=== PATIENT | female | born 1950 | race Caucasian/White ===

== ENCOUNTER 2019-06-25 19:33 | Observation (INO) ==
[2019-06-25 20:04] LABS: Hematocrit 39.6 % (35.3-44.9); Hemoglobin 13.5 g/dL (11.5-15.4); Mean Corpuscular HGB Conc 34.1 g/dL (31.6-35.5); Mean Corpuscular Hemoglobin 30.4 pg (28.0-33.3); Mean Corpuscular Volume 89.2 fL (83.0-100.0); Mean Platelet Volume 9.5 fL (9.4-12.4); Platelet Count 146 K/mcL (140-400); Red Blood Count 4.44 M/mcL (3.82-4.97); Red Cell Distribution Width 13.3 % (11.5-14.5); White Blood Count 4.1 K/mcL (4.3-11.1)
[2019-06-25 20:11] LABS: Prothrombin Time 11.5 Seconds (9.4-12.1)
[2019-06-25 20:13] LABS: Activated Partial Thrombo Time 34.5 Seconds (26.0-36.0)
[2019-06-25 20:21] LABS: BUN/Creatinine Ratio 11 (6-26); Blood Urea Nitrogen 9 mg/dL (8-23); Calcium 8.8 mg/dL (8.6-10.3); Carbon Dioxide 24 mEq/L (23-29); Chloride 105 mEq/L (98-107); Glucose 91 mg/dL (70-105); Osmolality,Calculated 282 (280-300); Potassium 3.8 mEq/L (3.5-5.1); Sodium 137 mEq/L (136-145); eGFR For African Americans > 60 (> 60); eGFR For Non-African Americans > 60 (> 60)
[2019-06-25 20:23] LABS: Troponin I < 0.03 ng/mL (< 0.04)
[2019-06-25] MEDS ORDERED: 0.9 % Sodium Chloride 1,000 ML IVC ONE (20:35)
[2019-06-25] MEDS ORDERED: Ketorolac 15 MG/ML VIAL IM ONE (20:35)
[2019-06-25] MEDS ORDERED: Aspirin 325 MG TABLET PO ONE (20:43)
[2019-06-25] MEDS ORDERED: Naloxone 0.4 MG/ML INJ IVP PRN (21:58)
[2019-06-25] MEDS ORDERED: Methocarbamol 750 MG TABLET PO PRN (22:12)
[2019-06-25] MEDS ORDERED: Gadolinium Contrast Agent (WT Based) IV PRN (22:33)
[2019-06-25] MEDS: 0.9 % Sodium Chloride 1,000 ML IVC SCH (23:08)
[2019-06-25] MEDS: Fluticasone Propionate Nasal 50 MCG/SPRAY BOTTLE NS PRN (23:24)
[2019-06-26 02:38] LABS: INR 1.1; Prothrombin Time 12.1 Seconds (9.4-12.1)
[2019-06-26 03:01] LABS: Alanine Aminotransferase 36 Units/L (7-52); Albumin 3.8 g/dL (3.5-5.7); Albumin/Globulin Ratio 1.4 (1.1-2.2); Alkaline Phosphatase 75 Units/L (34-104); Aspartate Amino Transferase 40 Units/L (13-39); BUN/Creatinine Ratio 12 (6-26); Bilirubin,Total 0.3 mg/dL (0.3-1.0); Blood Urea Nitrogen 8 mg/dL (8-23); Calcium 8.1 mg/dL (8.6-10.3); Carbon Dioxide 22 mEq/L (23-29); Chloride 110 mEq/L (98-107); Chol/HDL Ratio 2.9 (0-4.9); Cholesterol 127 mg/dL (< 200); Globulin 2.7 g/dL (2.4-3.5); Glucose 83 mg/dL (70-105); HDL Cholesterol 44 mg/dL (40-59); LDL Cholesterol,Calculated 63 mg/dL (0-99); Osmolality,Calculated 289 (280-300); Phosphorous 2.4 mg/dL (2.7-4.5); Potassium 3.8 mEq/L (3.5-5.1); Sodium 141 mEq/L (136-145); Total Protein 6.5 g/dL (6.4-8.9); Triglycerides 100 mg/dL (< 150); eGFR For African Americans > 60 (> 60); eGFR For Non-African Americans > 60 (> 60)
[2019-06-26 03:25] LABS: Estimated Average Glucose 126 mg/dl
[2019-06-26] MEDS: *HR* Heparin 5,000 UNIT/ML VIAL SQ SCH ×3 (04:51→19:35)
[2019-06-26] MEDS ORDERED: Fluticasone Propionate Nasal 50 MCG/SPRAY BOTTLE NS SCH (09:00)
[2019-06-26] MEDS ORDERED: Isovue-370 500 ML BOTTLE IVP ONE ×2 (09:17→18:26)
[2019-06-26 10:20] LABS: Adenovirus Not Detected (Not Detect); Bordetella Pertussis Not Detected (Not Detect); Chlamydophila pneumoniae Not Detected (Not Detect); Coronavirus 229E Not Detected (Not Detect); Coronavirus HKU1 Not Detected (Not Detect); Coronavirus NL63 Not Detected (Not Detect); Coronavirus OC43 Not Detected (Not Detect); Human Metapneumovirus Not Detected (Not Detect); Human Rhinovirus/Enterovirus Not Detected (Not Detect); Influenza A Subtype 2009 H1 Not Detected (Not Detect); Mycoplasma pneumoniae Not Detected (Not Detect); Parainfluenza Virus 1 Not Detected (Not Detect); Parainfluenza Virus 2 Not Detected (Not Detect); Parainfluenza Virus 3 Not Detected (Not Detect); Parainfluenza Virus 4 Not Detected (Not Detect); Respiratory Syncytial Virus Not Detected (Not Detect)
[2019-06-26 10:27] LABS: Influenza B DETECTED (Not Detect)
[2019-06-26] MEDS: Loratadine 10 MG TABLET PO SCH (11:14)
[2019-06-26] MEDS: Cyanocobalamin (B-12) 1,000 MCG TABLET PO SCH (11:14)
[2019-06-26] MEDS: Cholecalciferol (D-3) 1,000 UNIT (25MCG) TABLET PO SCH (11:14)
[2019-06-26] MEDS: Aspirin 81 MG TAB.CHEW PO SCH (11:14)
[2019-06-26] MEDS: Niacin (24 HR) 500 MG TAB.ER.24H PO SCH (11:15)
[2019-06-26] MEDS: 0.9 % Sodium Chloride 1,000 ML IVC SCH ×2 (11:15→22:16)
[2019-06-26] MEDS: Amoxicillin 500 MG CAPSULE PO SCH ×3 (11:15→19:42)
[2019-06-26] MEDS: Fluticasone Propionate Nasal 50 MCG/SPRAY BOTTLE NS PRN (11:17)
[2019-06-26] MEDS: Azelastine 0.1% Nasal Spray 30 ML BOTTLE NS SCH (17:23)
[2019-06-26] MEDS: Acetaminophen 325 MG TABLET PO PRN (19:42)
[2019-06-27 02:01] LABS: Basophils % 0.3 %; Eosinophils # 0.1 K/mcL (0.0-0.6); Eosinophils % 2.8 %; Hematocrit 35.6 % (35.3-44.9); Hemoglobin 12.4 g/dL (11.5-15.4); Lymphocytes # 1.3 K/mcL (0.6-4.6); Mean Corpuscular HGB Conc 34.8 g/dL (31.6-35.5); Mean Corpuscular Hemoglobin 30.3 pg (28.0-33.3); Mean Platelet Volume 9.7 fL (9.4-12.4); Monocytes # 0.5 K/mcL (0.0-1.3); Monocytes % 16.3 %; Neutrophils # 1.2 K/mcL (1.6-8.9); Platelet Count 128 K/mcL (140-400); Red Blood Count 4.09 M/mcL (3.82-4.97); Red Cell Distribution Width 13.2 % (11.5-14.5); Segmented Neutrophils % 38.6 %; White Blood Count 3.2 K/mcL (4.3-11.1)
[2019-06-27 02:18] LABS: BUN/Creatinine Ratio 13 (6-26); Blood Urea Nitrogen 9 mg/dL (8-23); Calcium 8.5 mg/dL (8.6-10.3); Carbon Dioxide 22 mEq/L (23-29); Chloride 108 mEq/L (98-107); Glucose 101 mg/dL (70-105); Magnesium 1.9 mg/dL (1.6-2.6); Osmolality,Calculated 285 (280-300); Phosphorous 2.8 mg/dL (2.7-4.5); Potassium 3.2 mEq/L (3.5-5.1); Sodium 138 mEq/L (136-145); eGFR For African Americans > 60 (> 60); eGFR For Non-African Americans > 60 (> 60)
[2019-06-27] MEDS: *HR* Heparin 5,000 UNIT/ML VIAL SQ SCH (04:48)
[2019-06-27 07:35] VITALS: BP 129/80
[2019-06-27] MEDS: 0.9 % Sodium Chloride 1,000 ML IVC SCH (07:56)
[2019-06-27] MEDS: Loratadine 10 MG TABLET PO SCH (07:57)
[2019-06-27] MEDS: Niacin (24 HR) 500 MG TAB.ER.24H PO SCH (07:57)
[2019-06-27] MEDS: Cholecalciferol (D-3) 1,000 UNIT (25MCG) TABLET PO SCH (07:57)
[2019-06-27] MEDS: Aspirin 81 MG TAB.CHEW PO SCH (07:57)
[2019-06-27] MEDS: Cyanocobalamin (B-12) 1,000 MCG TABLET PO SCH (07:57)
[2019-06-27] MEDS: Amoxicillin 500 MG CAPSULE PO SCH (07:57)
[2019-06-27] MEDS: Azelastine 0.1% Nasal Spray 30 ML BOTTLE NS SCH (07:58)
[2019-06-27] MEDS: Fluticasone Propionate Nasal 50 MCG/SPRAY BOTTLE NS PRN (07:58)
[2019-06-27] MEDS: Acetaminophen 325 MG TABLET PO PRN (09:24)
[2019-06-29] MEDS ORDERED: NON-FORMULARY MEDICATION 1 EACH EACH (Alendronate Sodium [Fosamax] 70 MG) PO SCH (22:12)
== END 2019-06-27 11:28 | disposition home or self-care (01) ==
LOC: EMEROOARM 19:33 → 3BNU 19:33 → SUATTDRO 21:15 → 3BNU 21:52
PROVIDERS: ADMIT Internal Medicine; ATTEND Internal Medicine